=== PATIENT | male | born 1970 | race Caucasian/White ===

== ENCOUNTER 2021-03-20 10:18 | Inpatient (IN) ==
[2021-03-20] MEDS ORDERED: 0.9 % SODIUM CHLORIDE 1,000 ML IV ONE ×2 (10:39→10:45)
[2021-03-20] MEDS ORDERED: ONDANSETRON 4 MG/2 ML VIAL IV ONE (10:40)
[2021-03-20] MEDS ORDERED: diphenhydrAMINE 50 MG/ML VIAL IV ONE (10:45)
[2021-03-20] MEDS ORDERED: DEXAMETHASONE 10 MG/ML VIAL IV ONE (10:45)
[2021-03-20] MEDS ORDERED: ALBUTEROL SULFATE 200 PUFF INHALER INH ONE (10:45)
--- NOTE | 2021-03-20 11:10 | XRay Report ---
HISTORY: Dyspnea and COVID pneumonia symptoms FINDINGS: The heart is moderately enlarged and has increased in size since 12/14/17. There are bilateral alveolar opacities in both lungs with the greatest consolidation centrally in the right lung. These are new. No pleural effusion is present. Right diaphragm is mildly elevated. There has been a prior sternotomy and coronary bypass surgery. IMPRESSION: Worsening cardiomegaly Bilateral alveolar opacities which could be due to pneumonia, pulmonary edema or combination of the two Interpreted and Authenticated by: Finesse Sebastian 03/20/21
[2021-03-20 11:51] LABS: Basophils # (Auto) 0.04 K/mcL (0.00-0.30); Basophils % (Auto) 0.3 % (0.0-2.0); Eosinophils # (Auto) 0.08 K/mcL (0.00-0.70); Eosinophils % (Auto) 0.6 % (0.0-7.0); Hemoglobin 15.5 g/dL (13.7-17.5); Lymphocytes # (Auto) 2.12 K/mcL (1.50-4.80); Lymphocytes % (Auto) 17.1 % (15.5-49.0); Mean Cell Volume 83.5 fL (80.0-100.0); Mean Corpuscular HGB Conc 33.7 g/dL (31.0-36.0); Mean Platelet Volume 8.9 fL (7.4-10.4); Monocytes # (Auto) 0.64 K/mcL (0.10-0.90); Monocytes % (Auto) 5.2 % (1.0-12.0); Neutrophils % (Auto) 76.8 % (38.0-78.0); Platelet Count 810 K/mcL (140-440); RBC 5.51 M/mcL (4.63-6.08); WBC 12.4 K/mcL (4.5-11.0)
[2021-03-20] MEDS ORDERED: IPRATROPIUM/ALBUTEROL 3 ML AMPUL.NEB NEB ONE (12:14)
[2021-03-20 12:19] LABS: ALT/SGPT 60 U/L (<40); AST/SGOT 35 U/L (<40); Albumin 3.9 gm/dL (3.2-5.2); Alkaline Phosphatase 96 U/L (39-117); Bilirubin,Total 0.4 mg/dL (0.1-1.0); Blood Urea Nitrogen 12 mg/dL (6-20); Calcium 9.5 mg/dL (8.6-10.4); Carbon Dioxide 14 mmol/L (22-30); Chloride 101 mmol/L (96-108); Globulin 4.1 gm/dL (2.2-3.7); Glomerular Filtration Rate 99; Glucose 192 mg/dL (70-105)
--- NOTE | 2021-03-20 13:06 | Emergency Department Note ---
SOB HPI General Chief Complaint: Shortness of Breath/Dyspnea Stated Complaint: Covid symptoms Time Seen by Provider: 03/20/21 10:44 Source: patient and family Mode of arrival: wheelchair Limitations: no limitations History of Present Illness HPI Narrative: Narrative: Related Data Home Medications Medication Instructions Recorded Confirmed aspirin 325 mg tablet 325 mg PO QAM tab 03/03/19 02/21/21 bisoprolol fumarate 10 mg tablet 10 mg PO QAM tab 03/03/19 02/21/21 metoprolol succinate 25 mg 25 mg PO QDAY 09/29/20 02/21/21 tablet,extended release 24 hr atorvastatin 80 mg tablet 80 mg PO QHS tab 02/21/21 02/21/21 Previous Rx's Medication Instructions Recorded pramipexole 0.25 mg tablet See Rx Instructions .ROUTE 03/15/20 .COMPLEX #30 tab nitroglycerin 0.4 mg sublingual 0.4 mg SUBLINGUAL Q5-15M PRN #30 07/29/20 tablet tab mirtazapine 30 mg tablet 30 mg PO QHS #30 tab 12/07/20 venlafaxine 150 mg 150 mg PO QDAY #30 cap 01/10/21 capsule,extended release 24 hr venlafaxine 75 mg capsule,extended See Rx Instructions .ROUTE 01/10/21 release 24 hr .COMPLEX #30 cap metformin 500 mg tablet 500 mg PO BID #60 tab 01/23/21 fluoxetine 20 mg capsule 20 mg PO QDAY #30 cap 02/15/21 olanzapine 20 mg tablet 20 mg PO QHS #30 tab 02/15/21 docusate sodium 100 mg capsule 100 mg PO QDAY #30 cap 02/21/21 lorazepam 2 mg tablet 2 mg PO TID #90 tab 02/27/21 Allergies Allergy/AdvReac Type Severity Reaction Status Date / Time PPD black rubber mix Allergy Intermediate rash Verified 02/21/21 12:51 Review of Systems ROS ROS Narrative: Narrative: PFSH Narrative Patient History Narrative: Narrative: Medical/Surgical/Family History All Active Problems (Updated 03/20/21 @ 13:15 by Luis Enrique Ramos MD) Sepsis (Acute) Pneumonia (Acute) Diabetes mellitus (Acute) Heart attack (Chronic ~2016) Knee locking (Chronic) Adverse reaction to cannabis (Chronic) Tachycardia (Chronic) Bigeminy (Chronic) Malaise (Chronic) Adverse drug effect (Chronic) Schizoaffective disorder, depressive type (Chronic) Panic disorder (Chronic) 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) Constipation (Chronic) Medication management (Chronic) History of rectal surgery (Chronic 08/22/17) Cannabis use disorder, mild, abuse (Chronic) History of methamphetamine abuse (Chronic) Snoring (Chronic 08/30/17) Prediabetes (Chronic 06/28/17) Essential hypertension (Chronic 06/28/17) Parkinson's disease (Chronic 12/24/17) Coronary atherosclerosis (Chronic 06/28/17) Bronchospasm (Chronic 12/24/17) Obesity (Chronic 07/26/17) Restless legs (Chronic 06/28/17) Compression fracture (Chronic 06/28/17) Rectal prolapse (Chronic 08/26/18) Pulmonary embolism (Chronic 08/27/18) Essential hypertension (Chronic) Hyperlipidemia (Chronic 10/31/18) Coronary arteriosclerosis (Chronic 12/03/18) Anxiety (Chronic 06/28/17) Dyslipidemia (Chronic 07/03/17) Depressive disorder (Chronic 06/28/17) Mixed hyperlipidemia (Chronic 12/03/18) Tremor (Chronic 12/24/17) Insomnia (Chronic 06/28/17) Parkinson's disease (Chronic 01/12/19) Schizophrenia (Chronic 09/17/18) Medical History (Updated 02/08/21 @ 15:21 by Edgar Barrios MD) Adverse drug effect Adverse reaction to cannabis Anxiety (06/28/17) Bigeminy Bronchospasm (12/24/17) Cannabis use disorder, mild, abuse Catatonia associated with another mental disorder Compression fracture (06/28/17) Constipation Coronary atherosclerosis (06/28/17) Depressive disorder (06/28/17) Diabetes mellitus Dyslipidemia (07/03/17) Essential hypertension (06/28/17) Heart attack (~2015) History of echocardiography (12/22/18) History of intestine removal large intestine removal; removed all of cancer History of methamphetamine abuse Hyperlipidemia (10/31/18) Insomnia (06/28/17) Knee locking Malaise Medication management Mixed hyperlipidemia (12/03/18) Obesity (07/26/17) Panic disorder Parkinson's disease (12/24/17) Prediabetes (06/28/17) Pulmonary embolism (08/27/18) Rectal prolapse (08/26/18) Restless legs (06/28/17) Schizoaffective disorder, depressive type currently in partial remission Snoring (08/30/17) Tachycardia Tremor (12/24/17) Surgical History History of four vessel coronary artery bypass graft (10/11/15) History of rectal surgery (08/22/17) repair of rectal prolapse Family History Mother Anxiety disorder Diabetes mellitus Grandmother Diabetes mellitus maternal Social History Smoking Status: Never smoker Alcohol Intake Frequency: does not drink Substance Use: former substance user and marijuana Exam Narrative Narrative: Narrative: General Limitations: no limitations Course Vital Signs Vital signs: Vital Signs Temperature 96.8 F L 03/20/21 10:19 Pulse Rate 128 H 03/20/21 10:19 Respiratory Rate 24 H 03/20/21 10:19 Blood Pressure 129/98 03/20/21 10:19 Pulse Oximetry (%) 96 03/20/21 10:19 Temperature 96.8 F L 03/20/21 10:19 Pulse Rate 110 H 03/20/21 12:31 Respiratory Rate 24 H 03/20/21 10:19 Blood Pressure 133/87 03/20/21 12:31 Pulse Oximetry (%) 98 03/20/21 12:31 MDM MDM Narrative Medical decision making narrative: Narrative: 50-year-old patient complaining of increasing shortness of breath fevers and chills. His Covid test is negative his white count is elevated for with elevated neutrophils and left shift. He also has thrombocytopenia with platelets at 810. Patient's anion gap is markedly elevated at 21 with a lactic acid at 3.7. Patient received IV antibiotics Rocephin and azithromycin he did not receive the full 30 mL/kg of IV normal saline secondary to his history of congestive heart failure he is hemodynamically and respiratorily stable diagnosis 1 is sepsis diagnosis to his pneumonia. Lab Data Lab results reviewed: Yes I reviewed the patient's lab results. Result diagrams: 03/20/21 10:47 03/20/21 10:47 Labs: Lab Results 03/20/21 03/20/21 03/20/21 Range/Units 10:47 10:47 10:47 WBC 12.4 H (4.5-11.0) K/mcL RBC 5.51 (4.63-6.08) M/mcL Hgb 15.5 (13.7-17.5) g/dL Hct 46.0 (40.1-51.0) % MCV 83.5 (80.0-100.0) fL MCH 28.1 (26.0-34.0) pg MCHC 33.7 (31.0-36.0) g/dL RDW 13.0 (11.5-14.5) % Plt Count 810 H (140-440) K/mcL MPV 8.9 (7.4-10.4) fL Neut % (Auto) 76.8 (38.0-78.0) % Lymph % (Auto) 17.1 (15.5-49.0) % [place] % (Auto) 5.2 (1.0-12.0) % Eos % (Auto) 0.6 (0.0-7.0) % Baso % (Auto) 0.3 (0.0-2.0) % Lymph # (Auto) 2.12 (1.50-4.80) K/mcL [place] # (Auto) 0.64 (0.10-0.90) K/mcL Eos # (Auto) 0.08 (0.00-0.70) K/mcL Baso # (Auto) 0.04 (0.00-0.30) K/mcL Absolute Neutrophils 9.50 H (1.80-8.00) K/mcL VBG Lactic Acid (0.5-2.0) mmol/L Sodium 136 (133-145) mmol/L Potassium 4.5 (3.3-5.1) mmol/L Chloride 101 (96-108) mmol/L Carbon Dioxide 14 L (22-30) mmol/L Anion Gap 21.0 H (8.0-16.0) BUN 12 (6-20) mg/dL Creatinine 0.9 (0.7-1.2) mg/dL GFR Calculation 99 Glucose 192 H (70-105) mg/dL Calcium 9.5 (8.6-10.4) mg/dL Total Bilirubin 0.4 (0.1-1.0) mg/dL AST 35 (<40) U/L ALT 60 H (<40) U/L Alkaline Phosphatase 96 (39-117) U/L Troponin T < 0.01 (<0.03) ng/mL Total Protein 8.0 (5.9-8.4) gm/dL Albumin 3.9 (3.2-5.2) gm/dL Globulin 4.1 H (2.2-3.7) gm/dL Albumin/Globulin Ratio 1.0 (1.0-2.3) 03/20/21 Range/Units 11:30 WBC (4.5-11.0) K/mcL RBC (4.63-6.08) M/mcL Hgb (13.7-17.5) g/dL Hct (40.1-51.0) % MCV (80.0-100.0) fL MCH (26.0-34.0) pg MCHC (31.0-36.0) g/dL RDW (11.5-14.5) % Plt Count (140-440) K/mcL MPV (7.4-10.4) fL Neut % (Auto) (38.0-78.0) % Lymph % (Auto) (15.5-49.0) % [place] % (Auto) (1.0-12.0) % Eos % (Auto) (0.0-7.0) % Baso % (Auto) (0.0-2.0) % Lymph # (Auto) (1.50-4.80) K/mcL [place] # (Auto) (0.10-0.90) K/mcL Eos # (Auto) (0.00-0.70) K/mcL Baso # (Auto) (0.00-0.30) K/mcL Absolute Neutrophils (1.80-8.00) K/mcL VBG Lactic Acid 3.7 H (0.5-2.0) mmol/L Sodium (133-145) mmol/L Potassium (3.3-5.1) mmol/L Chloride (96-108) mmol/L Carbon Dioxide (22-30) mmol/L Anion Gap (8.0-16.0) BUN (6-20) mg/dL Creatinine (0.7-1.2) mg/dL GFR Calculation Glucose (70-105) mg/dL Calcium (8.6-10.4) mg/dL Total Bilirubin (0.1-1.0) mg/dL AST (<40) U/L ALT (<40) U/L Alkaline Phosphatase (39-117) U/L Troponin T (<0.03) ng/mL Total Protein (5.9-8.4) gm/dL Albumin (3.2-5.2) gm/dL Globulin (2.2-3.7) gm/dL Albumin/Globulin Ratio (1.0-2.3) ED POC Tests ED POC Tests: ALON - SARS Antigen Negative Radiology Data Radiology results reviewed: Yes I reviewed the patient's radiology results. Radiology results narrative: Chest x-ray IMPRESSION: Worsening cardiomegaly Bilateral alveolar opacities which could be due to pneumonia, pulmonary edema or combination of the two Interpreted and Authenticated by: Finesse Sebastian 03/20/21 EKG Data EKG #1: EKG attestation: Yes I reviewed and interpreted this EKG. and Yes There are no EKG findings of acute coronary syndrome EKG shows normal: sinus rhythm Rate: tachycardia (109) [place]/QRS: normal Heart block present: None ST segment elevation in: None ST segment depression in: None Q waves: None T wave inversions noted in: None Hyperacute T waves: None QTc: normal QRS morphology: Present normal Interpretation: no acute changes and other (Motion artifact noted) Pulse Oximetry Data Pulse Ox %: 98 Interpretation: 98% on room air within normal limits. Discharge Plan Patient/Caregiver Discharge Instructions Pt seen by GAS CUTTER/PA only: No Clinical Impression: Sepsis, Pneumonia Patient Disposition: Xfer As Inpt ([facility]) Follow up with: Bonilla Estrada MD [Primary Care Provider] - Prescriptions: No Action pramipexole 0.25 mg tablet See Rx Instructions .ROUTE .COMPLEX Qty: 30 RF: 2 mirtazapine 30 mg tablet 30 mg PO QHS Qty: 30 RF: 2 venlafaxine 75 mg capsule,extended release 24hr See Rx Instructions .ROUTE .COMPLEX Qty: 30 RF: 3 venlafaxine 150 mg capsule,extended release 24hr 150 mg PO QDAY Qty: 30 RF: 3 metformin 500 mg tablet 500 mg PO BID Qty: 60 RF: 2 olanzapine 20 mg tablet 20 mg PO QHS Qty: 30 RF: 3 fluoxetine 20 mg capsule 20 mg PO QDAY Qty: 30 RF: 3 lorazepam 2 mg tablet 2 mg PO TID Qty: 90 RF: 2 aspirin 325 mg tablet 325 mg PO QAM RF: 0 bisoprolol fumarate 10 mg tablet 10 mg tablet 10 mg PO QAM RF: 0 nitroglycerin 0.4 mg tablet, sublingual 0.4 mg SUBLINGUAL Q5-15M PRN (Reason: chest pain) Qty: 30 RF: 0 metoprolol succinate 25 mg tablet extended release 24 hr 25 mg PO QDAY RF: 0 atorvastatin 80 mg tablet 80 mg PO QHS RF: 0 docusate sodium 100 mg capsule 100 mg PO QDAY Qty: 30 RF: 1
[2021-03-20] MEDS ORDERED: cefTRIAXone 1 GM VIAL IV ONE (13:11)
[2021-03-20] MEDS ORDERED: AZITHROMYCIN 500 MG in DEXTROSE 5% IN WATER 250 ML IV ONE (13:11)
--- NOTE | 2021-03-20 14:43 | EKG ---
Merged With [facility] Test Date: 2021-03-20 Pat Name: Pacheco Wahl Department: ED Room: Gender: Male [employer]: HS : 1970 Requested By: Luis Enrique Ramos Order Number: [id number] Reading MD: Sky Rubalcava Measurements Intervals [place] Rate: 109 P: 6 NM: 156 QRS: -24 QRSD: 106 T: 160 QT: 344 QTc: 464 Interpretive Statements SINUS TACHYCARDIA Electronically Signed On 03-20-2021 14:43:08 PDT by Sky Rubalcava /store/M0/[id number]
[2021-03-20] MEDS ORDERED: DEXTROSE 31 GM ORAL.SUSP PO PRN ×2 (15:33→16:52)
[2021-03-20] MEDS ORDERED: DEXTROSE 50% 50 ML VIAL IV PRN ×2 (15:33→16:52)
--- NOTE | 2021-03-20 15:46 | Internal Med History&Physical ---
HPI History of Present Illness Patient information: Note initiated : 03/20/21 at 3:42 pm Service Date, if different from initiated Date: [] Patient: Pacheco Wahl 50 y/o M admitted on for Covid symptoms. Chief Complaint: [] History of present illness: Mr. Wahl is a 50 year old with a history of DM II, CAD s/p CABG, PE, cardiomyopathy w/ LVEF 45%, cognitive impairment, schizophrenia, cognitive impairment, obesity who lives with his parents p resented to the ED after about 3 weeks of dyspnea and generally not feeling well. The patient was not able to describe his symptoms of more detail. Patient does have moderate cognitive impairment. His parents are also not able to provide much more information. It sounds like the patient has also been complaining of abdominal period of time. In the ED, the patient's vitals were remarkable for tachycardia. Patient had a leukocytosis and thrombocytosis, venous blood gas lactic acid was elevated at 3.7, the patient also had a metabolic acidosis with an anion gap of 21. EKG showed sinus tachycardia, troponin was normal. The patient's vitals for chest x-ray showed bilateral alveolar opacities which radiology felt could be due to pneumonia, pulmonary edema or a combination of the 2. Rapid SARS-CoV-2 antigen test was negative in the ED. The patient's presentation was concerning for sepsis, blood cultures were drawn the patient was started on ceftriaxone and azithromycin and given IV fluid. Hospital medicine was asked to admit the patient. Review of systems Constitutional: no fever, positive for fatigue, Eyes: no vision changes or pain Cardiovascular: no chest pain, no palpitations Respiratory: no cough, positive for dyspnea Gastrointestinal: positive for abdominal pain, no nausea, vomiting, or diarrhea Genitourinary: no dysuria or difficulty voiding Musculoskeletal: no arthralgia or myalgia Integumentary: no skin lesion or wound Neurological: no focal weakness or numbness Psychiatric: no anxiety or depression Physical exam Head: Atraumatic, normal inspection. Eyes: normal appearance, no scleral icterus. Neck: full ROM Respiratory: no respiratory distress. Cardiovascular: regular tachycardia, S1, S2. GI/Abdominal: soft, nontender, no guarding. Extremities: full range of motion, nontender. Neurological: CN II-XII intact, intact motor, intact sensation. Psychiatric: normal mood. 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) Constipation (Chronic) Medication management (Chronic) History of rectal surgery (Chronic 08/22/17) Cannabis use disorder, mild, abuse (Chronic) History of methamphetamine abuse (Chronic) Snoring (Chronic 08/30/17) Prediabetes (Chronic 06/28/17) Essential hypertension (Chronic 06/28/17) Parkinson's disease (Chronic 12/24/17) Coronary atherosclerosis (Chronic 06/28/17) Bronchospasm (Chronic 12/24/17) Obesity (Chronic 07/26/17) Restless legs (Chronic 06/28/17) Compression fracture (Chronic 06/28/17) Rectal prolapse (Chronic 08/26/18) Pulmonary embolism (Chronic 08/27/18) Essential hypertension (Chronic) Hyperlipidemia (Chronic 10/31/18) Coronary arteriosclerosis (Chronic 12/03/18) Anxiety (Chronic 06/28/17) Dyslipidemia (Chronic 07/03/17) Depressive disorder (Chronic 06/28/17) Mixed hyperlipidemia (Chronic 12/03/18) Tremor (Chronic 12/24/17) Insomnia (Chronic 06/28/17) Parkinson's disease (Chronic 01/12/19) Schizophrenia (Chronic 09/17/18) Medical History (Updated 02/08/21 @ 15:21 by Edgar Barrios MD) Adverse drug effect Adverse reaction to cannabis Anxiety (06/28/17) Bigeminy Bronchospasm (12/24/17) Cannabis use disorder, mild, abuse Catatonia associated with another mental disorder Compression fracture (06/28/17) Constipation Coronary atherosclerosis (06/28/17) Depressive disorder (06/28/17) Diabetes mellitus Dyslipidemia (07/03/17) Essential hypertension (06/28/17) Heart attack (~2015) History of echocardiography (12/22/18) History of intestine removal large intestine removal; removed all of cancer History of methamphetamine abuse Hyperlipidemia (10/31/18) Insomnia (06/28/17) Knee locking Malaise Medication management Mixed hyperlipidemia (12/03/18) Obesity (07/26/17) Panic disorder Parkinson's disease (12/24/17) Prediabetes (06/28/17) Pulmonary embolism (08/27/18) Rectal prolapse (08/26/18) Restless legs (06/28/17) Schizoaffective disorder, depressive type currently in partial remission Snoring (08/30/17) Tachycardia Tremor (12/24/17) Surgical History History of four vessel coronary artery bypass graft (10/11/15) History of rectal surgery (08/22/17) repair of rectal prolapse Family History Mother Anxiety disorder Diabetes mellitus Grandmother Diabetes mellitus maternal Social History (Updated 02/21/21 @ 12:53 by Debra Fuller CMA) household members: family lives independently: Yes education level: college occupational status: disabled smoking status: Never smoker alcohol intake frequency: does not drink substance use type: former substance user and marijuana working smoke detector in home: Yes MEDS/ALLERGIES Home Medications and Allergies Home Medications Medication Instructions Recorded Confirmed Type aspirin 325 mg tablet 325 mg PO QAM tab 03/03/19 02/21/21 History bisoprolol fumarate 10 mg tablet 10 mg PO QAM tab 03/03/19 02/21/21 History pramipexole 0.25 mg tablet See Rx Instructions .ROUTE 03/15/20 02/21/21 Rx .COMPLEX #30 tab nitroglycerin 0.4 mg sublingual 0.4 mg SUBLINGUAL Q5-15M PRN #30 07/29/20 02/21/21 Rx tablet tab metoprolol succinate 25 mg 25 mg PO QDAY 09/29/20 02/21/21 History tablet,extended release 24 hr mirtazapine 30 mg tablet 30 mg PO QHS #30 tab 12/07/20 02/21/21 Rx venlafaxine 150 mg 150 mg PO QDAY #30 cap 01/10/21 02/21/21 Rx capsule,extended release 24 hr venlafaxine 75 mg capsule,extended See Rx Instructions .ROUTE 01/10/21 02/21/21 Rx release 24 hr .COMPLEX #30 cap metformin 500 mg tablet 500 mg PO BID #60 tab 01/23/21 02/21/21 Rx fluoxetine 20 mg capsule 20 mg PO QDAY #30 cap 02/15/21 02/21/21 Rx olanzapine 20 mg tablet 20 mg PO QHS #30 tab 02/15/21 02/21/21 Rx atorvastatin 80 mg tablet 80 mg PO QHS tab 02/21/21 02/21/21 History docusate sodium 100 mg capsule 100 mg PO QDAY #30 cap 02/21/21 02/21/21 Rx lorazepam 2 mg tablet 2 mg PO TID #90 tab 02/27/21 Rx Allergies Allergy/AdvReac Type Severity Reaction Status Date / Time PPD black rubber mix Allergy Intermediate rash Verified 02/21/21 12:51 EXAM Constitutional Vitals: Temp Pulse Resp BP Pulse Ox 96.8 F L 110 H 24 H 143/102 96 03/20/21 10:19 03/20/21 15:31 03/20/21 10:19 03/20/21 15:31 03/20/21 15:31 DATA Data Completed and Pending Labs: Labs from last 24 hours 03/20/21 03/20/21 03/20/21 11:30 10:47 10:47 WBC RBC Hgb Hct MCV MCH MCHC RDW Plt Count MPV Neut % (Auto) Lymph % (Auto) [place] % (Auto) Eos % (Auto) Baso % (Auto) Lymph # (Auto) [place] # (Auto) Eos # (Auto) Baso # (Auto) Absolute Neutrophils VBG Lactic Acid 3.7 H Sodium Potassium Chloride Carbon Dioxide Anion Gap BUN Creatinine GFR Calculation Glucose Calcium Total Bilirubin AST ALT Alkaline Phosphatase Troponin T < 0.01 Pending Total Protein Albumin Globulin Albumin/Globulin Ratio 03/20/21 03/20/21 10:47 10:47 WBC 12.4 H RBC 5.51 Hgb 15.5 Hct 46.0 MCV 83.5 MCH 28.1 MCHC 33.7 RDW 13.0 Plt Count 810 H MPV 8.9 Neut % (Auto) 76.8 Lymph % (Auto) 17.1 [place] % (Auto) 5.2 Eos % (Auto) 0.6 Baso % (Auto) 0.3 Lymph # (Auto) 2.12 [place] # (Auto) 0.64 Eos # (Auto) 0.08 Baso # (Auto) 0.04 Absolute Neutrophils 9.50 H VBG Lactic Acid Sodium 136 Potassium 4.5 Chloride 101 Carbon Dioxide 14 L Anion Gap 21.0 H BUN 12 Creatinine 0.9 GFR Calculation 99 Glucose 192 H Calcium 9.5 Total Bilirubin 0.4 AST 35 ALT 60 H Alkaline Phosphatase 96 Troponin T Total Protein 8.0 Albumin 3.9 Globulin 4.1 H Albumin/Globulin Ratio 1.0 A/P Narrative A/P Narrative: Assessment: 50 year old male with a history of DM II, CAD s/p CABG, PE, cardiomyopathy w/ LVEF 45%, cognitive impairment, schizophrenia, cognitive impairment, obesity who lives with his parents presented to the ED after about 3 weeks of dyspnea and generally not feeling well. #Possible sepsis vs SIRS due noninfectious cause #Possible community acquired pneumonia #Hx of pulmonary embolism 2018 #Type 2 diabetes mellitus #Coronary artery disease s/p CABG #Ischemic cardiomyopathy (LVEF 45%) #Cognitive impairment #Schizophrenia #Obesity BMI 34 Plan -Ceftriaxone and Azithromycin for now. -IV fluid, monitor volume status. -SARS-CoV-2 PCR, if negative consider respiratory panel PCR. -MRSA nasal PCR. -Check d-dimer, pro-BNP, Procalcitonin. -Consider CT chest, if d-dimer elevated will order CTA chest. -Follow lactic acid, continue IV fluid if lactic acid still elevated. -Home medication reconciliation, continue essential medications. -DVT ppx: Lovenox SQ -Code status: Scleroscope Tester Spent With Patient Time: Total time spent is greater than 50% in coordination of care (as documented) at patient's floor/unit and/or counseling patient:
[2021-03-20] MEDS ORDERED: LACTULOSE 20 GM/30 ML ORAL.SOL PO PRN (16:49)
[2021-03-20] MEDS ORDERED: cefTRIAXone 1 GM in DEXTROSE 5% IN WATER 50 ML IV SCH (16:49)
[2021-03-20] MEDS ORDERED: SENNOSIDES 1 TABLET PO PRN (16:49)
[2021-03-20 16:54] LABS: proBNP 477.9 pg/mL (<125.0)
[2021-03-20] MEDS ORDERED: INSULIN LISPRO 1 UNIT/0.01 ML UNIT SQ SCH (17:00)
[2021-03-20] MEDS: 0.9 % SODIUM CHLORIDE 1,000 ML IV SCH (17:05)
[2021-03-20] MEDS: ONDANSETRON 4 MG/2 ML VIAL IV PRN ×2 (17:09→22:14)
[2021-03-20] MEDS: LORazepam 1 MG TABLET PO PRN (17:10)
[2021-03-20] MEDS: INSULIN LISPRO 1 UNIT/0.01 ML UNIT SQ SCH ×2 (17:10→20:59)
[2021-03-20 17:57] LABS: ALT/SGPT 57 U/L (<40); AST/SGOT 29 U/L (<40); Albumin 3.4 gm/dL (3.2-5.2); Albumin/Globulin Ratio 0.9 (1.0-2.3); Alkaline Phosphatase 87 U/L (39-117); Bilirubin,Direct < 0.2 mg/dL (0-0.3); Bilirubin,Total 0.2 mg/dL (0.1-1.0); Blood Urea Nitrogen 13 mg/dL (6-20); Calcium 8.5 mg/dL (8.6-10.4); Carbon Dioxide 18 mmol/L (22-30); Chloride 100 mmol/L (96-108); Glomerular Filtration Rate 104; Glucose 174 mg/dL (70-105); Lactate Dehydrogenase 225 U/L (135-225); Phosphorous 1.7 mg/dL (2.5-4.5); Triglycerides 141 mg/dL (<150); Uric Acid 4.8 mg/dL (2.5-8.0)
[2021-03-20 18:32] LABS: Appearance,Urine CLEAR (Clear); Bilirubin,Urine Negative (Negative); Color,Urine YELLOW; Culture Indicated,Urine No; Glucose,Urine (UA) Negative (Negative); Ketones,Urine 20 mg/dL (Negative); Leukocyte Esterase,Urine Negative /ug (Negative); Mucus,Urine MOD /hpf; Nitrate,Urine Negative (Negative); Protein,Urine Negative (Negative); Specific Gravity,Urine 1.027 (1.000-1.035); Urine Blood Negative (Negative); Urine RBC < 1 /hpf (0-3); Urine Squamous Epithelial Cell 0 /hpf (0-4); Urine WBC < 1 /hpf (0-4); Urobilinogen,Urine Negative
[2021-03-20] MEDS ORDERED: IOPAMIDOL 100 ML BOTTLE IV ONE (19:25)
--- NOTE | 2021-03-20 19:59 | Cat Scan Report ---
Shortness of breath, pneumonia, diffuse abdominal pain TECHNIQUE: Following injection of intravenous nonionic contrast material phase images were acquired through the chest. Sagittal coronal and axial MIPS images were created. Delayed portal venous phase images of the abdomen were acquired from the diaphragm to the symphysis pubis. Sagittal and coronal reformats were created. Radiation exposure was limited using dose reduction technology. FINDINGS: CHEST: There is a mosaic distribution of groundglass alveolar infiltrates in both lungs. The greatest involvement is in the upper lobes and superior segments of the lower lobes. There is greater consolidation in the right lung than left. No lobar consolidation is present. There is no pleural effusion. There are couple reactive lymph nodes in the mediastinum and sonny. Largest lymph node is in the right hilum and measures 1.1 x 1.7 cm. Central pulmonary arteries are normal. In the posterior basal segment of the right lower lobe there are two small peripheral emboli located in third order pulmonary arteries. There is no associated pulmonary infarct or atelectasis in that segment. Remainder of the pulmonary arteries are normal. The heart size is within normal limits. The patient had prior coronary bypass surgery. No pericardial effusion is present. The aorta is normal in caliber and there is no significant plaque formation. Incidentally noted is bilateral gynecomastia. Abdomen and pelvis: Mild generalized fatty infiltration of the liver is present. Posteriorly in segment two of the left lobe of the liver and there is a 1.8 x 2.2 cm cyst. Liver is otherwise normal. The gallbladder and bile ducts are normal without evidence of stone or obstruction. The spleen is normal in size and homogeneous. There is mild fatty infiltration in the pancreas. There is no evidence of pancreatitis or mass. The adrenals are normal and symmetric. The kidneys are normal in size shape and contour. There is no kidney stone, hydronephrosis or inflammation in either kidney. The bowel pattern is normal without evidence of inflammation or obstruction. There are no diverticula. The appendix is noninflamed. The prostate, bladder and seminal vesicles appear normal. Small fat-containing left inguinal hernia is present. There is no entrapment of bowel. A moderate anterior wedge compression fracture is present at L1. This appears old. There is arthritis in the facet joints bilaterally in the mid to lower lumbar spine. Scattered plaques are present along the wall of normal caliber abdominal aorta and iliac arteries. No ascites is present. There are no enlarged lymph nodes. IMPRESSION: Small peripheral pulmonary emboli in the posterior basal segment of the right lower lobe Patchy infiltrates in both lungs right worse than left. The pattern is highly suggestive of Covid pneumonia although the blood work is reportedly negative for Covid. This could be another atypical pneumonia, more likely viral than bacterial. Mild fatty infiltration in the liver with a hepatic cyst Abdomen and pelvis are otherwise normal. Dr. Lawrence was called with the report Interpreted and Authenticated by: Finesse Sebastian 03/20/21
[2021-03-20] MEDS: LEVOFLOXACIN 750 MG/150 ML BAG IV SCH (20:56)
[2021-03-20] MEDS: ENOXAPARIN 120 MG/0.8 ML SYRINGE SQ SCH (20:59)
[2021-03-20] MEDS: 0.9 % SODIUM CHLORIDE 10 ML SYRINGE IV SCH (20:59)
[2021-03-20] MEDS ORDERED: INSULIN GLARGINE, HUMAN 1 UNIT/0.01 ML SQ SCH ×2 (21:00)
[2021-03-21] MEDS: 0.9 % SODIUM CHLORIDE 1,000 ML IV SCH (04:30)
[2021-03-21] MEDS: 0.9 % SODIUM CHLORIDE 10 ML SYRINGE IV SCH ×3 (06:13→20:28)
[2021-03-21] MEDS: INSULIN LISPRO 1 UNIT/0.01 ML UNIT SQ SCH ×4 (07:14→20:27)
[2021-03-21] MEDS: ONDANSETRON 4 MG/2 ML VIAL IV PRN ×2 (07:21→15:12)
[2021-03-21] MEDS: ENOXAPARIN 120 MG/0.8 ML SYRINGE SQ SCH (07:21)
[2021-03-21] MEDS: LORazepam 1 MG TABLET PO PRN (07:22)
[2021-03-21] MEDS ORDERED: cefTRIAXone 1 GM VIAL IV SCH (08:00)
[2021-03-21 08:13] LABS: Hematocrit 40.6 % (40.1-51.0); Hemoglobin 13.2 g/dL (13.7-17.5); Mean Cell Volume 87.1 fL (80.0-100.0); Mean Corpuscular HGB Conc 32.5 g/dL (31.0-36.0); Mean Platelet Volume 8.9 fL (7.4-10.4); Platelet Count 569 K/mcL (140-440); RBC 4.66 M/mcL (4.63-6.08); Red Cell Distribution Width 13.5 % (11.5-14.5); WBC 15.2 K/mcL (4.5-11.0)
[2021-03-21 08:34] LABS: ALT/SGPT 48 U/L (<40); AST/SGOT 22 U/L (<40); Albumin 3.4 gm/dL (3.2-5.2); Alkaline Phosphatase 78 U/L (39-117); Bilirubin,Direct < 0.2 mg/dL (0-0.3); Bilirubin,Total 0.3 mg/dL (0.1-1.0); Blood Urea Nitrogen 11 mg/dL (6-20); Calcium 8.6 mg/dL (8.6-10.4); Carbon Dioxide 23 mmol/L (22-30); Chloride 105 mmol/L (96-108); Globulin 3.3 gm/dL (2.2-3.7); Glomerular Filtration Rate 104; Glucose 93 mg/dL (70-105); Lactate Dehydrogenase 227 U/L (135-225); Phosphorous 2.6 mg/dL (2.5-4.5); Triglycerides 135 mg/dL (<150); Uric Acid 4.4 mg/dL (2.5-8.0)
[2021-03-21] MEDS ORDERED: ENOXAPARIN 40 MG/0.4 ML SYRINGE SQ SCH (09:00)
[2021-03-21] MEDS ORDERED: AZITHROMYCIN 500 MG in DEXTROSE 5% IN WATER 250 ML IV SCH (09:00)
[2021-03-21 11:33] LABS: Band Neutrophils % 1 % (0-10); Lymphocytes % 14 % (15-49); Monocytes % (Manual) 7 % (1-12); Platelet Estimate INCREASED (Normal); RBC Morphology NORMAL (Normal); Segmented Neutrophils % 78 % (38-78)
[2021-03-21] MEDS: LEVOFLOXACIN 750 MG/150 ML BAG IV SCH (14:00)
[2021-03-21] MEDS ORDERED: ACETAMINOPHEN 325 MG TABLET PO PRN ×2 (16:41→16:46)
[2021-03-21] MEDS ORDERED: DIAZEPAM 5 MG TABLET PO PRN (16:42)
[2021-03-21] MEDS ORDERED: DEXTROSE 31 GM ORAL.SUSP PO PRN (16:46)
[2021-03-21] MEDS ORDERED: SENNOSIDES 1 TABLET PO PRN (16:46)
[2021-03-21] MEDS ORDERED: LACTULOSE 20 GM/30 ML ORAL.SOL PO PRN (16:46)
[2021-03-21] MEDS ORDERED: IOPAMIDOL 100 ML BOTTLE IV ONE (16:46)
[2021-03-21] MEDS ORDERED: ONDANSETRON 4 MG/2 ML VIAL IV PRN (16:46)
[2021-03-21] MEDS ORDERED: DEXTROSE 50% 50 ML VIAL IV PRN (16:46)
--- NOTE | 2021-03-21 16:53 | Internal Med Progress Note ---
SUBJECTIVE Subjective Patient information: Note initiated : 03/21/21 at 4:45 pm Service Date, if different from initiated Date: [] Patient: Pacheco Wahl 50 y/o M admitted on 03/20/21 for Covid symptoms. Chief Complaint: [] Interval history: Mr. Wahl is a 50 year old with a history of DM II, CAD s/p CABG, PE, cardiomyopathy w/ LVEF 45%, cognitive impairment, schizophrenia, cognitive impairment, obesity who lives with his parents presented to the ED after about 3 weeks of dyspnea and generally not feeling well. The patient was not able to describe his symptoms of more detail. Patient does have moderate cognitive impairment. His parents are also not able to provide much more information. It sounds like the patient has also been complaining of abdominal period of time. In the ED, the patient's vitals were remarkable for tachycardia . Patient had a leukocytosis and thrombocytosis, venous blood gas lactic acid was elevated at 3.7, the patient also had a metabolic acidosis with an anion gap of 21. EKG showed sinus tachycardia, troponin was normal. The patient's vitals for chest x-ray showed bilateral alveolar opacities which radiology felt could be due to pneumonia, pulmonary edema or a combination of the 2. Rapid SARS-CoV-2 antigen test was negative in the ED. The patient's presentation was concerning for sepsis, blood cultures were drawn the patient was started on ceftriaxone and azithromycin and given IV fluid. Hospital medicine was asked to admit the patient. 03/21: Yesterday evening CT report showed small peripheral pulmonary emboli and bilateral patchy infiltrates suggestive of COVID pneumonia. Repeat SARS-CoV-2 PCR as first was negative, also ordered respiratory panel 1&2. Changes antibiotic regimen to levaquin. Feels better today, on nasal canula oxygen. Resumed home medications. Transfer to med/surg. Physical exam Head: Atraumatic, normal inspection. Eyes: normal appearance, no scleral icterus. Neck: full ROM Respiratory: no respiratory distress. Cardiovascular: regular tachycardia, S1, S2. GI/Abdominal: soft, nontender, no guarding. Extremities: full range of motion, nontender. Neurological: CN II-XII intact, intact motor, intact sensation. Psychiatric: normal mood. Skin: warm, normal color Constitutional Vitals: Vital Signs Temp Pulse Resp BP Pulse Ox 97.5 F 110 H 16 172/137 96 03/21/21 16:02 03/20/21 16:31 03/21/21 14:02 03/21/21 16:02 03/21/21 16:02 Period Temp Pulse Resp BP Sys/Champion Pulse Ox Last 24 Hr 97.2 F-98.7 F 89-172/61-137 87-100 Intake and Output 03/21/21 03/21/21 03/21/21 05:59 13:59 21:59 Intake Total 1150 1240 150 Output Total 650 175 Balance 1150 590 -25 Weight 114.351 kg Patient Weight 03/22/21 05:59 Weight 114.351 kg Intake & Output: Intake & Output 03/21/21 03/21/21 03/21/21 05:59 13:59 21:59 Intake Total 1150 1240 150 Output Total 650 175 Balance 1150 590 -25 Weight 114.351 kg Intake: IV 1150 1000 150 Sodium Chloride 0.9% 1,000 ml @ 1000 1000 135 mls/hr IV .[id number] [facility] Rx#: [id number] Oral 240 Output: Void Amount 650 175 Other: Urine Appearance Clear Clear Urine Color Dark Yellow Dark Yellow Urine Odor Strong OBJ DATA Labs CBC & Chem 7: 03/21/21 07:02 03/21/21 07:03 Labs: Abnormal Lab Results 03/21/21 03/21/21 03/21/21 07:03 07:02 06:35 WBC 15.2 H Hgb 13.2 L Plt Count 569 H Lymphocytes % 14 L Absolute Neutrophils Platelet Estimate Increased A ESR 38 H D-Dimer VBG Lactic Acid Carbon Dioxide Anion Gap Glucose Calcium Phosphorus GGT 89 H ALT 48 H Lactate Dehydrogenase 227 H NT-Pro-B Natriuret Pep Globulin Albumin/Globulin Ratio Urine Ketones Urine Mucus 03/20/21 03/20/21 03/20/21 17:24 17:07 15:45 WBC Hgb Plt Count Lymphocytes % Absolute Neutrophils Platelet Estimate ESR D-Dimer VBG Lactic Acid 2.3 H Carbon Dioxide 18 L Anion Gap 18.0 H Glucose 174 H Calcium 8.5 L Phosphorus 1.7 L GGT 100 H ALT 57 H Lactate Dehydrogenase NT-Pro-B Natriuret Pep Globulin 4.0 H Albumin/Globulin Ratio 0.9 L Urine Ketones 20 A Urine Mucus Mod A 09/03/20/21 03/20/21 15:45 15:45 11:30 WBC Hgb Plt Count Lymphocytes % Absolute Neutrophils Platelet Estimate ESR D-Dimer 0.60 H VBG Lactic Acid 3.7 H Carbon Dioxide Anion Gap Glucose Calcium Phosphorus GGT ALT Lactate Dehydrogenase NT-Pro-B Natriuret Pep 477.9 H Globulin Albumin/Globulin Ratio Urine Ketones Urine Mucus 03/20/21 03/20/21 10:47 10:47 WBC 12.4 H Hgb Plt Count 810 H Lymphocytes % Absolute Neutrophils 9.50 H Platelet Estimate ESR D-Dimer VBG Lactic Acid Carbon Dioxide 14 L Anion Gap 21.0 H Glucose 192 H Calcium Phosphorus GGT ALT 60 H Lactate Dehydrogenase NT-Pro-B Natriuret Pep Globulin 4.1 H Albumin/Globulin Ratio Urine Ketones Urine Mucus Meds: Medications Acetaminophen (Acetaminophen 325 Mg Tablet) 650 mg PO Q4-6HP PRN; Protocol PRN Reason: Per Pain Protocol Dextrose (Dextrose 50% 50 Ml Vial) 0 ml IV UD PRN PRN Reason: Hypoglycemia Diagnostic Test (Pha) (Accu-Chek 1 Each Strip) 1 each FS [facility] Last Admin: 03/21/21 11:40 Dose: 1 each Documented by: Diazepam (Diazepam 5 Mg Tablet) 5 mg PO BIDP PRN PRN Reason: Muscle Spasm Enoxaparin Sodium (Enoxaparin 120 Mg/0.8 Ml Syringe) 120 mg SQ Q12 [facility] Last Admin: 03/21/21 07:21 Dose: 120 mg Documented by: Glucose (Dextrose 31 Gm Oral.Susp) 15 gm PO PRN PRN PRN Reason: Hypoglycemia Levofloxacin (Levaquin) 750 mg in 150 mls @ 100 mls/hr IV Q24H [facility] Last Infusion: 03/21/21 15:40 Dose: Infused Documented by: Insulin Glargine (Insulin Glargine, Human 1 Unit/0.01 Ml) 5 unit SQ [facility] Last Admin: 03/20/21 20:59 Dose: 5 unit Documented by: Insulin Human Lispro (Insulin Lispro 1 Unit/0.01 Ml Unit) 0 unit SQ [facility]; Protocol Last Admin: 03/21/21 11:41 Dose: Not Given Documented by: Lactulose (Lactulose 20 Gm/30 Ml Oral.[place]) 10 gm PO DAILYP PRN PRN Reason: Constipation Ondansetron HCl (Ondansetron 4 Mg/2 Ml Vial) 4 mg IV Q4HP PRN; Protocol PRN Reason: Nausea And Vomiting Last Admin: 03/21/21 15:12 Dose: 4 mg Documented by: Senna (Sennosides 1 Tablet) 2 tab PO HSP PRN PRN Reason: Constipation Sodium Chloride (0.9 % Sodium Chloride 10 Ml Syringe) 10 ml IV Q8 [facility] Last Admin: 03/21/21 15:15 Dose: 10 ml Documented by: A/P Narrative A/P Narrative: Assessment: 50 year old male with a history of DM II, CAD s/p CABG, PE, cardiomyopathy w/ LVEF 45%, cognitive impairment, schizophrenia, cognitive impairment, obesity who lives with his parents presented to the ED after about 3 weeks of dyspnea and generally not feeling well. #Acute hypoxic respiratory failure #Bilateral pneumonia concerning for viral pneumonia #Possible community acquired pneumonia #Pulmonary emboli-low risk. #Type 2 diabetes mellitus #Coronary artery disease s/p CABG #Ischemic cardiomyopathy (LVEF 45%) #Cognitive impairment #Schizophrenia #Obesity BMI 34 Plan -Levaquin IV for now. -Oxygen supplementation. -IV fluid, monitor volume status. -Therapeutic lovenox, transition to oral anticoagulation prior to discharge. -Repeat SARS-CoV-2 PCR. -Respiratory panel 1&2. -Continue essential home medications. 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
[2021-03-21] MEDS: metFORMIN 500 MG TABLET PO SCH (17:13)
[2021-03-21] MEDS ORDERED: LORazepam 1 MG TABLET PO ONE (17:16)
[2021-03-21] MEDS ORDERED: VENLAFAXINE 75 MG CAP.XL.24H PO ONE (19:00)
[2021-03-21] MEDS: ATORVASTATIN 40 MG TABLET PO SCH (20:27)
[2021-03-21] MEDS: LORazepam 1 MG TABLET PO SCH (20:27)
[2021-03-21] MEDS: OLANZapine 5 MG TABLET PO SCH (20:28)
[2021-03-21] MEDS: MIRTAZAPINE 15 MG TABLET PO SCH (20:28)
[2021-03-21] MEDS: INSULIN GLARGINE, HUMAN 1 UNIT/0.01 ML SQ SCH (20:28)
[2021-03-21] MEDS ORDERED: ENOXAPARIN 120 MG/0.8 ML SYRINGE SQ SCH (21:00)
[2021-03-22] MEDS: 0.9 % SODIUM CHLORIDE 10 ML SYRINGE IV SCH ×3 (05:48→22:40)
[2021-03-22 08:53] LABS: Hematocrit 39.6 % (40.1-51.0); Hemoglobin 12.6 g/dL (13.7-17.5); Mean Cell Volume 88.6 fL (80.0-100.0); Mean Corpuscular HGB Conc 31.8 g/dL (31.0-36.0); Mean Platelet Volume 9.2 fL (7.4-10.4); Platelet Count 470 K/mcL (140-440); RBC 4.47 M/mcL (4.63-6.08); Red Cell Distribution Width 13.7 % (11.5-14.5); WBC 8.2 K/mcL (4.5-11.0)
[2021-03-22] MEDS ORDERED: VENLAFAXINE 150 MG CAP.XL.24H PO SCH (09:00)
[2021-03-22 09:03] LABS: ALT/SGPT 46 U/L (<40); AST/SGOT 22 U/L (<40); Albumin 3.1 gm/dL (3.2-5.2); Albumin/Globulin Ratio 0.9 (1.0-2.3); Alkaline Phosphatase 76 U/L (39-117); Bilirubin,Direct < 0.2 mg/dL (0-0.3); Bilirubin,Total 0.3 mg/dL (0.1-1.0); Blood Urea Nitrogen 12 mg/dL (6-20); Calcium 8.6 mg/dL (8.6-10.4); Carbon Dioxide 21 mmol/L (22-30); Chloride 105 mmol/L (96-108); Globulin 3.4 gm/dL (2.2-3.7); Glomerular Filtration Rate 104; Glucose 87 mg/dL (70-105); Lactate Dehydrogenase 252 U/L (135-225); Phosphorous 2.7 mg/dL (2.5-4.5); Triglycerides 196 mg/dL (<150); Uric Acid 4.3 mg/dL (2.5-8.0)
[2021-03-22 09:49] LABS: Eosinophils % (Manual) 2 % (0-7); Lymphocytes % 22 % (15-49); Monocytes % (Manual) 12 % (1-12); Platelet Estimate INCREASED (Normal); RBC Morphology NORMAL (Normal); Reactive Lymphocytes 6 % (0-2); Segmented Neutrophils % 58 % (38-78)
[2021-03-22] MEDS: INSULIN LISPRO 1 UNIT/0.01 ML UNIT SQ SCH ×4 (11:46→21:18)
[2021-03-22] MEDS: FLUoxetine HCL 20 MG CAPSULE PO SCH (12:02)
[2021-03-22] MEDS: PRAMIPEXOLE 0.25 MG TABLET PO SCH (12:03)
[2021-03-22] MEDS: metFORMIN 500 MG TABLET PO SCH ×2 (12:03→17:35)
[2021-03-22] MEDS: DOCUSATE SODIUM 100 MG CAPSULE PO SCH (12:03)
[2021-03-22] MEDS: VENLAFAXINE 75 MG CAP.XL.24H PO SCH (12:03)
[2021-03-22] MEDS: METOPROLOL SUCCINATE 25 MG TAB.XL.24H PO SCH (12:03)
[2021-03-22] MEDS: LORazepam 1 MG TABLET PO SCH ×3 (12:03→21:08)
[2021-03-22] MEDS: RIVAROXABAN 15 MG TABLET PO SCH ×2 (12:03→17:34)
[2021-03-22] MEDS: LEVOFLOXACIN 750 MG/150 ML BAG IV SCH (12:06)
--- NOTE | 2021-03-22 15:41 | Discharge Summary ---
Discharge Provider Provider Patient information: Note initiated : 03/22/21 at 3:37 pm Service Date, if different from initiated Date: [] Patient: Pacheco Wahl 50 y/o M admitted on 03/20/21 for Covid symptoms. Chief Complaint: [] Date of admission: 03/20/21 16:45 Discharge date: 03/22/21 Primary care physician: Bonilla Estrada MD Consults: 03/20/21 Consult to Physician [CONS] Stat Comment: Consulting Provider: Leonidas Lawrence Reason For Exam: Physician to Consult Discharge Meds Discharge Medications Home Medications pramipexole 0.25 mg tablet See Rx Instructions .ROUTE .COMPLEX #30 tab 03/15/20 [Rx Confirmed 03/20/21 Last Taken Unknown] metoprolol succinate 25 mg tablet,extended release 24 hr 25 mg PO QDAY 09/29/20 [History Confirmed 03/20/21 Last Taken Unknown] mirtazapine 30 mg tablet 30 mg PO QHS #30 tab 12/07/20 [Rx Confirmed 03/20/21 Last Taken Unknown] venlafaxine 150 mg capsule,extended release 24 hr 150 mg PO QDAY #30 cap 01/10/21 [Rx Confirmed 03/20/21 Last Taken Unknown] venlafaxine 75 mg capsule,extended release 24 hr See Rx Instructions .ROUTE .COMPLEX #30 cap 01/10/21 [Rx Confirmed 03/20/21 Last Taken Unknown] metformin 500 mg tablet 500 mg PO BID #60 tab 01/23/21 [Rx Confirmed 03/20/21 Last Taken Unknown] fluoxetine 20 mg capsule 20 mg PO QDAY #30 cap 02/15/21 [Rx Confirmed 03/20/21 Last Taken Unknown] olanzapine 20 mg tablet 20 mg PO QHS #30 tab 02/15/21 [Rx Confirmed 03/20/[address] Taken Unknown] atorvastatin 80 mg tablet 80 mg PO QHS tab 02/21/21 [History Confirmed 03/20/21 Last Taken Unknown] docusate sodium 100 mg capsule 100 mg PO QDAY #30 cap 02/21/21 [Rx Confirmed 03/20/21 Last Taken Unknown] lorazepam 2 mg tablet 2 mg PO TID #90 tab 02/27/21 [Rx Confirmed 03/20/21 Last Taken Unknown] levofloxacin 750 mg PO QDAY 4 Days #4 tab 03/22/21 [Rx Last Taken Unknown] rivaroxaban [Xarelto DVT-PE Treat 30d Start] See Rx Instructions .ROUTE .COMPLEX #51 tab 03/22/21 [Rx Last Taken Unknown] rivaroxaban [Xarelto] 20 mg PO QDAY #30 tab 03/22/21 [Rx Last Taken Unknown] COURSE Hospital Course Hospital course: Mr. Wahl is a 50 year old with a history of DM II, CAD s/p CABG, PE, cardiomyopathy w/ LVEF 45%, cognitive impairment, schizophrenia, cognitive impairment, obesity who lives with his parents presented to the ED after about 3 weeks of dyspnea and generally not feeling well. The patient was not able to describe his symptoms of more detail. Patient does have moderate cognitive impairment. His parents are also not able to provide much more information. It sounds like the patient has also been complaining of abdominal period of time. In the ED, the patient's vitals were remarkable for tachycardia. Patient had a leukocytosis and thrombocytosis, venous blood gas lactic acid was elevated at 3.7, the patient also had a metabolic acidosis with an anion gap of 21. EKG showed sinus tachycardia, troponin was normal. The patient's vitals for chest x-ray showed bilateral alveolar opacities which radiology felt could be due to pneumonia, pulmonary edema or a combination of the 2. Rapid SARS-CoV-2 antigen test was negative in the ED. The patient's presentation was concerning for sepsis, blood cultures were drawn the patient was started on ceftriaxone and azithromycin and given IV fluid. Hospital medicine was asked to admit the patient. 03/21: Yesterday evening CT report showed small peripheral pulmonary emboli and bilateral patchy infiltrates suggestive of COVID pneumonia. SARS-CoV-2 [place] PCR t was negative, also ordered respiratory panel 1&2. Changes antibiotic regimen to levaquin. Feels better today, on nasal canula oxygen. Resumed home medications. Transfer to med/surg. 03/22: SARS-CoV-2 [place] PCR not detected, respiratory panel 1&2 also negative. The patient has weaned of nasal canula oxygen to room air. Discharged to home to complete treatment with oral levofloxacin and also on Xarelto for pulmonary embolism. This is the patient's second pulmonary embolism therefore he is likely a candidate for life long anticoagulation. Follow up with PCP after discharge. Physical exam Head: Atraumatic, normal inspection. Eyes: normal appearance, no scleral icterus. Neck: full ROM Respiratory: no respiratory distress. Cardiovascular: regular tachycardia, S1, S2. GI/Abdominal: soft, nontender, no guarding. Extremities: full range of motion, nontender. Neurological: CN II-XII intact, intact motor, intact sensation. Psychiatric: normal mood. Skin: warm, normal color Discharge diagnosis: Pneumonia Secondary discharge diagnosis: Pulmonary embolism Time Spent with Patient Time attestation: Total time spent providing and/or coordinating discharge services: EXAM Constitutional Vitals: Temp Pulse Resp BP Pulse Ox 98.3 F 106 H 16 142/88 93 03/22/21 12:21 03/22/21 12:21 03/22/21 12:21 03/22/21 12:03/22/21 12:21 Discharge Data Data Completed and Pending Labs on day of discharge: Labs from last 24 hours 03/22/21 03/22/21 06:13 06:13 WBC 8.2 RBC 4.47 L Hgb 12.6 L Hct 39.6 L MCV 88.6 MCH 28.2 MCHC 31.8 RDW 13.7 Plt Count 470 H MPV 9.2 Seg Neutrophils % 58 Lymphocytes % 22 Monocytes % (Manual) 12 Eosinophils % (Manual) 2 Reactive Lymphocytes 6 H Platelet Estimate Increased A RBC Morphology Normal Sodium 139 Potassium 4.2 Chloride 105 Carbon Dioxide 21 L Anion Gap 13.0 BUN 12 Creatinine 0.8 GFR Calculation 104 Glucose 87 Uric Acid 4.3 Calcium 8.6 Phosphorus 2.7 Magnesium 2.1 Total Bilirubin 0.3 Direct Bilirubin < 0.2 GGT 83 H AST 22 ALT 46 H Alkaline Phosphatase 76 Lactate Dehydrogenase 252 H Total Protein 6.5 Albumin 3.1 L Globulin 3.4 Albumin/Globulin Ratio 0.9 L Triglycerides 196 H Preliminary micro results at discharge 03/20/21 11:30 Blood Culture - Preliminary Blood 03/20/21 11:15 Blood Culture - Preliminary Blood Discharge Plan Patient/Caregiver Discharge Instructions Activity: increase activity as tolerated Diet: Consistent Carbohydrate Instructions: Levofloxacin (By mouth), Rivaroxaban (By mouth), Sepsis (GEN), Pneumonia (DC) Prescriptions: New levofloxacin 750 mg tablet 750 mg PO QDAY 4 Days Qty: 4 RF: 0 Xarelto DVT-PE Treat 30d Start 15 mg (42)- 20 mg (9) tablets,dose pack See Rx Instructions .ROUTE .COMPLEX Qty: 51 RF: 0 Xarelto 20 mg tablet 20 mg PO QDAY Qty: 30 RF: 5 Continued pramipexole 0.25 mg tablet See Rx Instructions .ROUTE .COMPLEX Qty: 30 RF: 2 mirtazapine 30 mg tablet 30 mg PO QHS Qty: 30 RF: 2 venlafaxine 75 mg capsule,extended release 24hr See Rx Instructions .ROUTE .COMPLEX Qty: 30 RF: 3 venlafaxine 150 mg capsule,extended release 24hr 150 mg PO QDAY Qty: 30 RF: 3 metformin 500 mg tablet 500 mg PO BID Qty: 60 RF: 2 olanzapine 20 mg tablet 20 mg PO QHS Qty: 30 RF: 3 fluoxetine 20 mg capsule 20 mg PO QDAY Qty: 30 RF: 3 lorazepam 2 mg tablet 2 mg PO TID Qty: 90 RF: 2 metoprolol succinate 25 mg tablet extended release 24 hr 25 mg PO QDAY RF: 0 atorvastatin 80 mg tablet 80 mg PO QHS RF: 0 docusate sodium 100 mg capsule 100 mg PO QDAY Qty: 30 RF: 1 Follow Up Plan Follow up with: Bonilla Estrada MD [Primary Care Provider] - Patient Disposition: Home, Self-Care Prognosis: Fair Overall status at discharge: patient is progressing back to baseline Discharge Orders: Discharge Order (Routine); Ordered 03/22/21 Ordered By: Leonidas JEFFRIES VTE Deep Vein Thrombosis/Pulmonary Embolism Present on Admission: No
--- NOTE | 2021-03-22 16:33 | Internal Med Progress Note ---
SUBJECTIVE Subjective Patient information: Note initiated : 03/22/21 at 4:30 pm Service Date, if different from initiated Date: [] Patient: Pacheco Wahl 50 y/o M admitted on 03/20/21 for Covid symptoms. Chief Complaint: [] Interval history: Mr. Wahl is a 50 year old with a history of DM II, CAD s/p CABG, PE, cardiomyopathy w/ LVEF 45%, cognitive impairment, schizophrenia, cognitive impairment, obesity who lives with his parents presented to the ED after about 3 weeks of dyspnea and generally not feeling well. The patient was not able to describe his symptoms of more detail. Patient does have moderate cognitive impairment. His parents are also not able to provide much more information. It sounds like the patient has also been complaining of abdominal period of time. In the ED, the patient's vitals were remarkable for tachycardia . Patient had a leukocytosis and thrombocytosis, venous blood gas lactic acid was elevated at 3.7, the patient also had a metabolic acidosis with an anion gap of 21. EKG showed sinus tachycardia, troponin was normal. The patient's vitals for chest x-ray showed bilateral alveolar opacities which radiology felt could be due to pneumonia, pulmonary edema or a combination of the 2. Rapid SARS-CoV-2 antigen test was negative in the ED. The patient's presentation was concerning for sepsis, blood cultures were drawn the patient was started on ceftriaxone and azithromycin and given IV fluid. Hospital medicine was asked to admit the patient. 03/21: Yesterday evening CT report showed small peripheral pulmonary emboli and bilateral patchy infiltrates suggestive of COVID pneumonia. Repeat SARS-CoV-2 PCR as first was negative, also ordered respiratory panel 1&2. Changes antibiotic regimen to levaquin. Feels better today, on nasal canula oxygen. Resumed home medications. Transfer to med/surg. 03/22: On room air today, feels much better. Transitioned to Xarelto. Unable to discharge home pending copay evaluation for Xarelto. Likely discharge tomorrow. Physical exam Head: Atraumatic, normal inspection. Eyes: normal appearance, no scleral icterus. Neck: full ROM Respiratory: no respiratory distress. Cardiovascular: regular tachycardia, S1, S2. GI/Abdominal: soft, nontender, no guarding. Extremities: full range of motion, nontender. Neurological: CN II-XII intact, intact motor, intact sensation. Psychiatric: normal mood. Skin: warm, normal color Constitutional Vitals: Vital Signs Temp Pulse Resp BP Pulse Ox 98.3 F 106 H 16 142/88 93 03/22/21 12:21 03/22/21 12:21 03/22/21 12:21 03/22/21 12:21 03/22/21 12:21 Period Temp Pulse Resp BP Sys/Champion Pulse Ox Last 24 Hr 97.2 F-98.8 F 80-106 16- 107-160/72-128 93-96 Intake and Output 03/22/21 03/22/21 03/22/21 05:59 13:59 21:59 Intake Total 300 150 Balance 300 150 Intake & Output: Intake & Output 03/22/21 03/22/21 03/22/21 05:59 13:59 21:59 Intake Total 300 150 Balance 300 150 Intake: IV 150 Oral 300 Other: # Voids 1 1 # Bowel Movements 0 OBJ DATA Labs CBC & Chem 7: 03/22/21 06:13 03/22/21 06:13 Labs: Abnormal Lab Results 03/22/21 03/22/21 03/21/21 06:13 06:13 07:03 WBC RBC 4.47 L Hgb 12.6 L Hct 39.6 L Plt Count 470 H Lymphocytes % Absolute Neutrophils Reactive Lymphocytes 6 H Platelet Estimate Increased A ESR D-Dimer VBG Lactic Acid Carbon Dioxide 21 L Anion Gap Glucose Calcium Phosphorus GGT 83 H 89 H ALT 46 H 48 H Lactate Dehydrogenase 252 H 227 H NT-Pro-B Natriuret Pep Albumin 3.1 L Globulin Albumin/Globulin Ratio 0.9 L Triglycerides 196 H Urine Ketones Urine Mucus 03/21/21 03/21/21 03/20/21 07:02 06:35 17:24 WBC 15.2 H RBC Hgb 13.2 L Hct Plt Count 569 H Lymphocytes % 14 L Absolute Neutrophils Reactive Lymphocytes Platelet Estimate Increased A ESR 38 H D-Dimer VBG Lactic Acid 2.3 H Carbon Dioxide Anion Gap Glucose Calcium Phosphorus GGT ALT Lactate Dehydrogenase NT-Pro-B Natriuret Pep Albumin Globulin Albumin/Globulin Ratio Triglycerides Urine Ketones Urine Mucus 03/20/21 03/20/21 03/20/21 17:07 15:45 15:45 WBC RBC Hgb Hct Plt Count Lymphocytes % Absolute Neutrophils Reactive Lymphocytes Platelet Estimate ESR D-Dimer VBG Lactic Acid Carbon Dioxide 18 L Anion Gap 18.0 H Glucose 174 H Calcium 8.5 L Phosphorus 1.7 L GGT 100 H ALT 57 H Lactate Dehydrogenase NT-Pro-B Natriuret Pep 477.9 H Albumin Globulin 4.0 H Albumin/Globulin Ratio 0.9 L Triglycerides Urine Ketones 20 A Urine Mucus Mod A 03/20/21 03/20/21 03/20/21 15:45 11:30 10:47 WBC RBC Hgb Hct Plt Count Lymphocytes % Absolute Neutrophils Reactive Lymphocytes Platelet Estimate ESR D-Dimer 0.60 H VBG Lactic Acid 3.7 H Carbon Dioxide 14 L Anion Gap 21.0 H Glucose 192 H Calcium Phosphorus GGT ALT 60 H Lactate Dehydrogenase NT-Pro-B Natriuret Pep Albumin Globulin 4.1 H Albumin/Globulin Ratio Triglycerides Urine Ketones Urine Mucus 03/20/21 10:47 WBC 12.4 H RBC Hgb Hct Plt Count 810 H Lymphocytes % Absolute Neutrophils 9.50 H Reactive Lymphocytes Platelet Estimate ESR D-Dimer VBG Lactic Acid Carbon Dioxide Anion Gap Glucose Calcium Phosphorus GGT ALT Lactate Dehydrogenase NT-Pro-B Natriuret Pep Albumin Globulin Albumin/Globulin Ratio Triglycerides Urine Ketones Urine Mucus Meds: Medications Acetaminophen (Acetaminophen 325 Mg Tablet) 650 mg PO Q4-6HP PRN; Protocol PRN Reason: Per Pain Protocol Atorvastatin Calcium (Atorvastatin 40 Mg Tablet) 80 mg PO [facility] Last Admin: 03/21/21 20:27 Dose: 80 mg Documented by: Dextrose (Dextrose 50% 50 Ml Vial) 0 ml IV UD PRN PRN Reason: Hypoglycemia Diagnostic Test (Pha) (Accu-Chek 1 Each Strip) 1 each FS ACHS [facility] Last Admin: 03/22/21 12:14 Dose: 1 each Documented by: Docusate Sodium (Docusate Sodium 100 Mg Capsule) 100 mg PO QDAY [facility] Last Admin: 03/22/21 12:03 Dose: 100 mg Documented by: Fluoxetine HCl (Fluoxetine Hcl 20 Mg Capsule) 20 mg PO QDAY [facility] Last Admin: 03/22/21 12:02 Dose: 20 mg Documented by: Glucose (Dextrose 31 Gm Oral.Susp) 15 gm PO PRN PRN PRN Reason: Hypoglycemia Levofloxacin (Levaquin) 750 mg in 150 mls @ 100 mls/hr IV DAILY [facility] Last Infusion: 03/22/21 13:40 Dose: Infused Documented by: Insulin Glargine (Insulin Glargine, Human 1 Unit/0.01 Ml) 5 unit SQ [facility] Last Admin: 03/21/21 20:28 Dose: 5 unit Documented by: Insulin Human Lispro (Insulin Lispro 1 Unit/0.01 Ml Unit) 0 unit SQ [facility]; Protocol Last Admin: 03/22/21 12:15 Dose: Not Given Documented by: Lactulose (Lactulose 20 Gm/30 Ml Oral.[place]) 10 gm PO DAILYP PRN PRN Reason: Constipation Lorazepam (Lorazepam 1 Mg Tablet) 2 mg PO TID [facility] Last Admin: 03/22/21 12:03 Dose: 2 mg Documented by: Metformin HCl (Metformin 500 Mg Tablet) 500 mg PO [facility] Last Admin: 03/22/21 12:03 Dose: 500 mg Documented by: Metoprolol Succinate (Metoprolol Succinate 25 Mg Tab.Xl.24h) 25 mg PO QDAY [facility] Last Admin: 03/22/21 12:03 Dose: 25 mg Documented by: Mirtazapine (Mirtazapine 15 Mg Tablet) 30 mg PO [facility] Last Admin: 03/21/21 20:28 Dose: 30 mg Documented by: Olanzapine (Olanzapine 5 Mg Tablet) 20 mg PO [facility] Last Admin: 03/21/21 20:28 Dose: 20 mg Documented by: Ondansetron HCl (Ondansetron 4 Mg/2 Ml Vial) 4 mg IV Q4HP PRN; Protocol PRN Reason: Nausea And Vomiting Pramipexole Dihydrochloride (Pramipexole 0.25 Mg Tablet) 0.25 mg PO DAILY [facility] Last Admin: 03/22/21 12:03 Dose: 0.25 mg Documented by: Rivaroxaban (Rivaroxaban 15 Mg Tablet) 15 mg PO [facility] Stop: 04/12/21 07:59 Last Admin: 03/22/21 12:03 Dose: 15 mg Documented by: Senna (Sennosides 1 Tablet) 2 tab PO HSP PRN PRN Reason: Constipation Sodium Chloride (0.9 % Sodium Chloride 10 Ml Syringe) 10 ml IV Q8 [facility] Last Admin: 03/22/21 13:44 Dose: 10 ml Documented by: Venlafaxine HCl (Venlafaxine 75 Mg Cap.Xl.24h) 225 mg PO DAILY [facility] Last Admin: 03/22/21 12:03 Dose: 225 mg Documented by: A/P Narrative A/P Narrative: Assessment: 50 year old male with a history of DM II, CAD s/p CABG, PE, cardiomyopathy w/ LVEF 45%, cognitive impairment, schizophrenia, cognitive impairment, obesity who lives with his parents presented to the ED after about 3 weeks of dyspnea and generally not feeling well. #Acute hypoxic respiratory failure #Community acquired pneumonia #Pulmonary emboli-low risk. #Type 2 diabetes mellitus #Coronary artery disease s/p CABG #Ischemic cardiomyopathy (LVEF 45%) #Cognitive impairment #Schizophrenia #Obesity BMI 34 Plan -Levaquin IV for now. -Start Xarelto w/ DVT dosing. -Continue essential home medications. -Nocturnal hypoxia evaluation if possible. 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
[2021-03-22] MEDS: OLANZapine 5 MG TABLET PO SCH (21:07)
[2021-03-22] MEDS: MIRTAZAPINE 15 MG TABLET PO SCH ×2 (21:08→21:18)
[2021-03-22] MEDS: ATORVASTATIN 40 MG TABLET PO SCH (21:08)
[2021-03-22] MEDS: INSULIN GLARGINE, HUMAN 1 UNIT/0.01 ML SQ SCH (21:16)
[2021-03-23] MEDS: 0.9 % SODIUM CHLORIDE 10 ML SYRINGE IV SCH (06:07)
[2021-03-23] MEDS: INSULIN LISPRO 1 UNIT/0.01 ML UNIT SQ SCH ×2 (07:15→11:06)
[2021-03-23] MEDS: PRAMIPEXOLE 0.25 MG TABLET PO SCH (08:26)
[2021-03-23] MEDS: metFORMIN 500 MG TABLET PO SCH (08:26)
[2021-03-23] MEDS: FLUoxetine HCL 20 MG CAPSULE PO SCH (08:26)
[2021-03-23] MEDS: METOPROLOL SUCCINATE 25 MG TAB.XL.24H PO SCH (08:26)
[2021-03-23] MEDS: LORazepam 1 MG TABLET PO SCH (08:26)
[2021-03-23] MEDS: VENLAFAXINE 75 MG CAP.XL.24H PO SCH (08:26)
[2021-03-23] MEDS: RIVAROXABAN 15 MG TABLET PO SCH (08:26)
[2021-03-23] MEDS: DOCUSATE SODIUM 100 MG CAPSULE PO SCH (08:26)
[2021-03-23 08:50] LABS: Hematocrit 39.5 % (40.1-51.0); Hemoglobin 12.7 g/dL (13.7-17.5); Mean Cell Volume 88.8 fL (80.0-100.0); Mean Corpuscular HGB Conc 32.2 g/dL (31.0-36.0); Mean Platelet Volume 9.1 fL (7.4-10.4); Platelet Count 439 K/mcL (140-440); RBC 4.45 M/mcL (4.63-6.08); Red Cell Distribution Width 13.5 % (11.5-14.5); WBC 7.4 K/mcL (4.5-11.0)
[2021-03-23 09:11] LABS: ALT/SGPT 53 U/L (<40); AST/SGOT 29 U/L (<40); Albumin 3.2 gm/dL (3.2-5.2); Albumin/Globulin Ratio 1.1 (1.0-2.3); Alkaline Phosphatase 73 U/L (39-117); Bilirubin,Direct < 0.2 mg/dL (0-0.3); Bilirubin,Total 0.3 mg/dL (0.1-1.0); Blood Urea Nitrogen 14 mg/dL (6-20); Calcium 8.6 mg/dL (8.6-10.4); Carbon Dioxide 27 mmol/L (22-30); Chloride 105 mmol/L (96-108); Glomerular Filtration Rate 99; Glucose 88 mg/dL (70-105); Lactate Dehydrogenase 297 U/L (135-225); Phosphorous 2.9 mg/dL (2.5-4.5); Triglycerides 146 mg/dL (<150); Uric Acid 4.6 mg/dL (2.5-8.0)
[2021-03-23] MEDS: LEVOFLOXACIN 750 MG/150 ML BAG IV SCH (09:50)
[2021-03-23 11:21] LABS: Eosinophils % (Manual) 2 % (0-7); Lymphocytes % 31 % (15-49); Monocytes % (Manual) 8 % (1-12); Myelocytes % 1 %; Platelet Estimate NORMAL (Normal); RBC Morphology NORMAL (Normal); Reactive Lymphocytes 1 % (0-2); Segmented Neutrophils % 57 % (38-78)
== END 2021-03-23 12:25 | disposition home or self-care (01) | DRG 871 ==
LOC: ED 10:18 → ICU 16:45 → MEDSUR 03-21 22:13
PROVIDERS: ADMIT Internal Medicine; ATTEND Internal Medicine